=== PATIENT | female | born 2000 | race Caucasian/White ===

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

== ENCOUNTER 2022-10-31 16:46 | Emergency (ER) | payer BC ==
[2022-10-31] MEDS ORDERED: predniSONE 20 MG Tab PO ONE (18:08)
== END 2022-10-31 18:35 | disposition home or self-care (01) ==
LOC: JD.ED 16:46
DX: H66.93 Otitis media, unspecified, bilateral (principal); Z88.0 Allergy status to penicillin
CPT/HCPCS: 99283; J7512

== ENCOUNTER 2024-08-21 14:25 | Inpatient (IN) | payer BC ==
[2024-08-21] MEDS ORDERED: Acetaminophen 325 MG Tab PO PRN (15:43)
[2024-08-21] MEDS ORDERED: Nalbuphine 10 MG/1 ML Vial IVPUSH PRN (15:43)
[2024-08-21] MEDS ORDERED: Lidocaine 1% 50 ML MDV INJECT PRN (15:43)
[2024-08-21] MEDS ORDERED: Oxytocin/0.9 % Sodium Chloride 30 UNIT/500 ML BAG IV SCH (15:45)
[2024-08-21 16:22] LABS: BASOPHILS PERCENT AUTO 0.3 % (0.0-1.0); HEMATOCRIT 35.6 % (37.0-47.0); HEMOGLOBIN 12.5 gm/dl (12.0-16.0); IMMATURE GRAN PERCENT AUTO 0.6 % (0.0-0.4); LYMPHOCYTES ABSOLUTE AUTO 2.5 K/mm3 (1.0-4.8); LYMPHOCYTES PERCENT AUTO 15.9 % (24.0-44.0); MEAN CORPUSCULAR HEMOGLOBIN 31.8 pg (28.0-32.0); MEAN CORPUSCULAR HGB CONC 35.1 g/dl (32.0-36.0); MEAN CORPUSCULAR VOLUME 90.6 fl (83.0-99.0); MEAN PLATELET VOLUME 11.2 fl (9.4-12.3); MONOCYTES ABSOLUTE AUTO 1.1 K/mm3 (0.0-0.8); MONOCYTES PERCENT AUTO 6.8 % (0.0-8.0); NEUTROPHILS ABSOLUTE AUTO 11.9 K/mm3 (1.8-7.7); NEUTROPHILS PERCENT AUTO 76.4 % (41.0-71.0); PLATELET COUNT,PLT 250 K/mm3 (150-400); RED BLOOD CELL COUNT 3.93 M/mm3 (4.10-5.30); WHITE BLOOD CELL COUNT,WBC 15.59 K/mm3 (3.9-11.3)
[2024-08-21] MEDS: Lactated Ringers 1,000 ML IV SCH (18:51)
[2024-08-21] MEDS ORDERED: diphenhydrAMINE 50 MG/ML SDV IVPUSH PRN (19:43)
[2024-08-21] MEDS: fentaNYL 100 MCG/2 ML SDV EPIDUR PRN (19:51)
[2024-08-21] MEDS: Bupivacaine/fentaNYL/NS 100 ML Bag EPIDUR PRN (19:52)
[2024-08-21] MEDS: Ondansetron 4 MG/2 ML SDV IVPUSH PRN (19:55)
[2024-08-21] MEDS: Oxytocin/0.9 % Sodium Chloride 30 UNIT/500 ML BAG IV SCH (20:31)
[2024-08-21] MEDS: ePHEDrine 50 MG/ML SDV IVPUSH PRN (21:20)
[2024-08-22] MEDS ORDERED: Oxytocin/0.9 % Sodium Chloride 30 UNIT/500 ML BAG IV SCH (08:14)
[2024-08-22] MEDS ORDERED: Magnesium Hydroxide 400 MG/5 ML Susp 30 ML Cup PO PRN (08:14)
[2024-08-22] MEDS ORDERED: Simethicone 80 MG Tab.Chew PO PRN (08:14)
[2024-08-22] MEDS ORDERED: Acetaminophen 325 MG Tab PO PRN (08:14)
[2024-08-22] MEDS ORDERED: Hydrocortisone Acetate 25 MG Supp RECTAL PRN (08:14)
[2024-08-22] MEDS: Witch Hazel Medicated Pads 40/Jar TOP PRN (09:33)
[2024-08-22] MEDS: Benzocaine/Menthol 20%-0.5% Spray 78 GM Cannister TOP PRN (09:33)
[2024-08-22] MEDS: Ibuprofen 600 MG Tab PO SCH (09:36)
[2024-08-22] MEDS: Prenatal Multivitamin with Calcium/Folic Acid/Iron Tab PO SCH (16:50)
[2024-08-23] MEDS: Ibuprofen 600 MG Tab PO SCH (01:00)
[2024-08-24] MEDS: Docusate Sodium 100 MG Cap PO PRN (08:39)
== END 2024-08-24 12:10 | disposition home or self-care (01) | DRG 560 ==
LOC: JD.OB 14:25 → JD.OBCHECK 14:25 → JD.OB 15:43 → OBSVTOIN 15:43 → JD.OBCHECK 15:43 → JD.OB 08-22 07:49
PROVIDERS: ADMIT Obstetrics & Gynecology; ATTEND Obstetrics & Gynecology
PROC: 10907ZC Drainage of Amniotic Fluid, Therapeutic from Products of Conception, Via Natural or Artificial Opening (ICD-10-PCS; principal; 2024-08-21)
PROC: 0HQ9XZZ Repair Perineum Skin, External Approach (ICD-10-PCS; principal; 2024-08-21)
PROC: 3E0R3BZ Introduction of Anesthetic Agent into Spinal Canal, Percutaneous Approach (ICD-10-PCS; principal; 2024-08-21)
PROC: 10E0XZZ Delivery of Products of Conception, External Approach (ICD-10-PCS; principal; 2024-08-21)
PROC: 30233S1 Transfusion of Nonautologous Globulin into Peripheral Vein, Percutaneous Approach (ICD-10-PCS; principal; 2024-08-21)
DX: O48.0 Post-term pregnancy (principal); Z3A.40 40 weeks gestation of pregnancy; Z37.0 Single live birth; Z88.0 Allergy status to penicillin; O99.214 Obesity complicating childbirth; Z98.890 Other specified postprocedural states; Z79.899 Other long term (current) drug therapy; O70.0 First degree perineal laceration during delivery; O69.1XX0 Labor and delivery complicated by cord around neck, with compression, not applicable or unspecified; Z67.91 Unspecified blood type, Rh negative
CPT/HCPCS: 36415; 51701; 51702; 51798; 59025; 59409; 84112; 85025; 85461; 86592; 86850; 86900; 86901; A9270-GY; C1758; J2405; J2791; J3010; J3490; J7120; J7999